=== PATIENT | male | born 1945 | race Caucasian/White ===

== ENCOUNTER 2016-09-04 20:41 | Emergency (ER) | payer BC, MEDICARE, OTHER ==
[2016-09-04] MEDS ORDERED: Ketorolac 30 MG/ML SDV ONE (21:08)
[2016-09-04] MEDS ORDERED: Aluminum Hydroxide/Magnesium Hydroxide Susp 30 ML Cup ONE (21:09)
[2016-09-04] MEDS ORDERED: Lidocaine 2% Viscous Solution 15 ML Cup ONE (21:09)
[2016-09-04] MEDS ORDERED: Sodium Chloride 0.9% 10 ML Syringe FLUSH PRN (21:10)
[2016-09-04] MEDS ORDERED: Alum Hydroxide/Mag Hydroxide 15 ML, Lidocaine 2% 15 ML PO ONE ×2 (21:11)
[2016-09-04] MEDS ORDERED: Ketorolac 30 MG/ML SDV IVPUSH ONE (21:11)
[2016-09-04] MEDS ORDERED: Potassium Chloride 20 MEQ Tab.ER PO ONE (22:03)
[2016-09-04] MEDS ORDERED: Sodium Chloride 0.9% 1,000 ML IV SCH (22:15)
[2016-09-04] MEDS ORDERED: Iopamidol 755 Mg/ML 100 ML Bottle IV ONE (23:26)
--- NOTE | 2016-09-04 23:37 | EDM.PDOC ---
ED HPI GENERAL MEDICAL PROBLEM - General Chief Complaint: Abdominal Pain Stated Complaint: SEVER ABDPAIN Time Seen by Provider: 09/04/16 21:31 Source of Information: Reports: Patient History Limitations: Reports: No Limitations - History of Present Illness INITIAL COMMENTS - FREE TEXT/NARRATIVE: c/o severe epigastric pain x 1h is in [place], he made himself salmon for dinner, shortly thereafter he had a severe burn and pain in his epigastrium, it felt likely heartburn just much worse than in the past, he took a GasX without benefit, central, radiated to back no n/v, no f/c/d quite uncomfortable on arrival here, pain relieved completely after Toradol 15 mg IV and GI cocktail does have inc'd LFTs that are 4-5x previous normal level 2y ago will obtain abd CT to look for possible hepatic, biliary and pancreatic disease K 3.2, pt may have GERD with gastric spasm d/t hypokalemia and dehydration (inc' d hgb) and known h/o GERD h/o kidney stones which is much different per pt PSH TURP, cervical disc surgery, no abd surgery no cigs, drinks one beer a day only, no street drugs Treatments RN TRANSFER: Reports: NSAIDS Middle Abdominal Pain Score (Numeric/FACES): 10 - Related Data Allergies Allergy/AdvReac Type Severity Reaction Status Date / Time No Known Allergies Allergy Verified 04/24/14 03:07 Home Meds: Home Meds Aspirin [Divina Chewable Aspirin] 81 mg PO DAILY 04/24/14 [History] Levothyroxine 112 mcg PO ACBRK 04/24/14 [History] Omeprazole [Prilosec] 20 mg PO DAILY 04/24/14 [History] Simvastatin [Zocor] 40 mg PO BEDTIME 04/24/14 [History] Potassium Chloride [K-Tab ER] 20 meq PO BID #4 tablet.er 09/05/16 [Rx] Sucralfate [Carafate] 1 gm PO ACBED #28 tab 09/05/16 [Rx] Past Medical History Cardiovascular History: Reports: High Cholesterol - Past Surgical History Male Surgical History: Reports: TURP-Transurethral Resection of Prostate Social & Family History - Tobacco Use Smoking Status *Q: Never Smoker Second Hand Smoke Exposure: No - Alcohol Use Days Per Week of Alcohol Use: 1 Number of Drinks Per Day: 1 Total Drinks Per Week: 1 Date of Last Drink: 09/04/16 Time of Last Drink: 18:00 - Recreational Drug Use Recreational Drug Use: No ED ROS GENERAL - Review of Systems Review Of Systems: See Below Constitutional: Reports: No Symptoms HEENT: Reports: No Symptoms Respiratory: Reports: No Symptoms Cardiovascular: Reports: No Symptoms Endocrine: Reports: No Symptoms GI/Abdominal: Reports: Abdominal Pain : Reports: No Symptoms Musculoskeletal: Reports: No Symptoms Skin: Reports: No Symptoms Neurological: Reports: No Symptoms Psychiatric: Reports: No Symptoms Hematologic/Lymphatic: Reports: No Symptoms Immunologic: Reports: No Symptoms ED EXAM, GI/ABD - Physical Exam Exam: See Below General Appearance: Alert, WD/WN, Moderate Distress, Other (unable to get comfortable) Head: Atraumatic, Normocephalic Neck: Normal Inspection, Supple, Non-Tender, Full Range of Motion Respiratory/Chest: No Respiratory Distress, Lungs Clear, Normal Breath Sounds, No Accessory Muscle Use, Chest Non-Tender Cardiovascular: Normal Peripheral Pulses, Regular Rate, Rhythm, No Edema, No Gallop, No JVD, No Murmur, No Rub GI/Abdominal: Normal Bowel Sounds, Soft, No Distention, Other (1+ tender from xiphoid to 1/[address] way to umbilicus in midline) Back Exam: Normal Inspection Extremities: Normal Inspection, Normal Range of Motion, Non-Tender, No Pedal Edema Neurological: Alert, Oriented, CN II-XII Intact, Normal Cognition, No Motor/ Sensory Deficits Psychiatric: Normal Affect Skin Exam: Warm, Dry, Intact, Normal Color, No Rash Lymphatic: No Adenopathy Course - Vital Signs Last Recorded V/S: Last Vital Signs Temp 36.4 C 09/04/16 20:52 Pulse 58 L 09/05/16 00:04 Resp 16 09/05/16 00:04 BP 152/83 H 09/05/16 00:04 Pulse Ox 99 09/05/16 00:04 - Orders/Labs/Meds Orders: Active Orders 24 hr Category Date Time Status EKG Documentation Completion [RC] ASDIRECTED Care 09/04/16 21:13 Active Abdomen w Cont [CT] Stat Exams 09/04/16 22:11 Taken LIPASE [REF] Stat Lab 09/04/16 21:51 Received Sodium Chloride 0.9% [Normal Saline] 1,000 ml Med 09/04/16 22:15 Active IV ASDIRECTED Sodium Chloride 0.9% [Saline Flush] Med 09/04/16 21:10 Active 10 ml FLUSH ASDIRECTED PRN Saline Lock Insert [OM.PC] Routine Oth 09/04/16 21:10 Ordered EKG 12 Lead [EK] Routine Ther 09/04/16 21:12 Ordered Medication Orders Sodium Chloride (Normal Saline) 1,000 mls @ 999 mls/hr IV ASDIRECTED DB Last Admin: 09/04/16 22:17 Dose: 999 mls/hr Sodium Chloride (Saline Flush) 10 ml FLUSH ASDIRECTED PRN PRN Reason: Keep Vein Open Last Admin: 09/04/16 22:16 Dose: 10 ml Labs: Laboratory Tests 09/04/16 09/04/16 09/04/16 Range/Units 21:17 21:17 21:17 WBC 7.8 (4.5-12.0) X10-3/uL RBC 5.25 (4.30-5.75) x10(6)uL Hgb 15.8 H (11.5-15.5) g/dL Hct 45.8 (30.0-51.3) % MCV 87.3 (80-96) fL MCH 30.0 (27.7-33.6) pg MCHC 34.4 (32.2-35.4) g/dL RDW 12.9 (11.5-15.5) % Plt Count 199 (125-369) X10(3)uL MPV 9.9 (7.4-10.4) fL Neut % (Auto) 50.1 (46-82) % Lymph % (Auto) 42.3 H (13-37) % [place] % (Auto) 5.8 (4-12) % Eos % (Auto) 1 (1.0-5.0) % Baso % (Auto) 0 (0-2) % Neut # (Auto) 3.9 (1.6-8.3) # Lymph # (Auto) 3.3 (0.6-5.0) # Dixie # (Auto) 0.5 (0.0-1.3) # Eos # (Auto) 0.1 (0.0-0.8) # Baso # (Auto) 0.0 (0.0-0.2) # Sodium 137 (135-145) mmol/L Potassium 3.2 L (3.5-5.3) mmol/L Chloride 104 (100-110) mmol/L Carbon Dioxide 23 (23-29) mmol/L BUN 23 (8-23) mg/dL Creatinine 1.2 (0.6-1.3) mg/dL Est Cr Clr Drug Dosing 61.01 mL/min Estimated GFR (MDRD) 60 (>60) BUN/Creatinine Ratio 19.2 (9-20) Glucose 104 (80-116) mg/dL Calcium 9.4 (8.6-10.2) mg/dL Total Bilirubin 1.2 (0.1-1.3) mg/dL AST 129 H D (5-27) IU/L ALT 82 H D (14-26) IU/L Alkaline Phosphatase 83 (56-112) IU/L Troponin I < 0.01 L (0.02-0.06) NG/ML C-Reactive Protein < 0.5 (0.0-1.0) mg/dL Total Protein 7.9 (6.0-8.0) g/dL Albumin 4.8 H (3.2-4.6) g/dL Globulin 3.1 g/dL Albumin/Globulin Ratio 1.6 Amylase (28-100) U/L Urine Color (YELLOW) Urine Appearance (CLEAR) Urine pH (5.0-6.5) Ur Specific [place] (1.010-1.025) Urine Protein (NEGATIVE) mg/dL Urine Glucose (UA) (NEGATIVE) mg/dL Urine Ketones (NEGATIVE) mg/dL Urine Occult Blood (NEGATIVE) Urine Nitrite (NEGATIVE) Urine Bilirubin (NEGATIVE) Urine Urobilinogen (NEGATIVE) mg/dL Ur Leukocyte Esterase (NEGATIVE) Urine RBC (0) Urine WBC (0) Ur Squamous Epith Cells (NS,R,O) Urine Bacteria (NS) Urine Mucus (NS) 09/04/16 09/04/16 Range/Units 21:45 21:51 WBC (4.5-12.0) X10-3/uL RBC (4.30-5.75) x10(6)uL Hgb (11.5-15.5) g/dL Hct (30.0-51.3) % MCV (80-96) fL MCH (27.7-33.6) pg MCHC (32.2-35.4) g/dL RDW (11.5-15.5) % Plt Count (125-369) X10(3)uL MPV (7.4-10.4) fL Neut % (Auto) (46-82) % Lymph % (Auto) (13-37) % [place] % (Auto) (4-12) % Eos % (Auto) (1.0-5.0) % Baso % (Auto) (0-2) % Neut # (Auto) (1.6-8.3) # Lymph # (Auto) (0.6-5.0) # Dixie # (Auto) (0.0-1.3) # Eos # (Auto) (0.0-0.8) # Baso # (Auto) (0.0-0.2) # Sodium (135-145) mmol/L Potassium (3.5-5.3) mmol/L Chloride (100-110) mmol/L Carbon Dioxide (23-29) mmol/L BUN (8-23) mg/dL Creatinine (0.6-1.3) mg/dL Est Cr Clr Drug Dosing mL/min Estimated GFR (MDRD) (>60) BUN/Creatinine Ratio (9-20) Glucose (80-116) mg/dL Calcium (8.6-10.2) mg/dL Total Bilirubin (0.1-1.3) mg/dL AST (5-27) IU/L ALT (14-26) IU/L Alkaline Phosphatase (56-112) IU/L Troponin I (0.02-0.06) NG/ML C-Reactive Protein (0.0-1.0) mg/dL Total Protein (6.0-8.0) g/dL Albumin (3.2-4.6) g/dL Globulin g/dL Albumin/Globulin Ratio Amylase 61 (28-100) U/L Urine Color Yellow (YELLOW) Urine Appearance Clear (CLEAR) Urine pH 5.0 (5.0-6.5) Ur Specific [place] 1.020 (1.010-1.025) Urine Protein Negative (NEGATIVE) mg/dL Urine Glucose (UA) Normal (NEGATIVE) mg/dL Urine Ketones Negative (NEGATIVE) mg/dL Urine Occult Blood Negative (NEGATIVE) Urine Nitrite Negative (NEGATIVE) Urine Bilirubin Negative (NEGATIVE) Urine Urobilinogen Normal (NEGATIVE) mg/dL Ur Leukocyte Esterase Negative (NEGATIVE) Urine RBC Not seen (0) Urine WBC 0-5 (0) Ur Squamous Epith Cells Moderate H (NS,R,O) Urine Bacteria Few H (NS) Urine Mucus Moderate H (NS) Meds: Medications Generic Name Dose Route Start Last Admin Trade Name Carlitos PRN Reason Stop Dose Admin Sodium Chloride 1,000 mls @ 999 mls/hr 09/04/16 22:15 09/04/16 22:17 Normal Saline IV 999 mls/hr ASDIRECTED DB Administration Sodium Chloride 10 ml 09/04/16 21:10 09/04/16 22:16 Saline Flush FLUSH 10 ml ASDIRECTED PRN Administration Keep Vein Open Discontinued Medications Generic Name Dose Route Start Last Admin Trade Name Carlitos PRN Reason Stop Dose Admin Al Hydroxide/Mg Hydroxide Confirm 09/04/16 21:09 09/04/16 21:16 Mag-Al Susp Administered 09/04/16 21:10 Not Given Dose 30 ml .ROUTE .STK-MED ONE Al Hydroxide/Mg Hydroxide 15 0 ml 09/04/16 21:11 09/04/16 21:17 ml/ Lidocaine HCl 15 ml PO 09/04/16 21:12 30 ml ONETIME ONE Administration Iopamidol 90 ml 09/04/16 23:26 09/04/16 23:40 Isovue-370 (76%) IV 09/04/16 23:27 90 ml . DIRECTED ONE Administration Ketorolac Tromethamine Confirm 09/04/16 21:08 09/04/16 21:17 Toradol Administered 09/04/16 21:09 Not Given Dose 30 mg .ROUTE .STK-MED ONE Ketorolac Tromethamine 15 mg 09/04/16 21:11 09/04/16 21:19 Toradol IVPUSH 09/04/16 21:12 15 mg ONETIME ONE Administration Lidocaine HCl Confirm 09/04/16 21:09 09/04/16 21:17 Xylocaine 2% Viscous Administered 09/04/16 21:10 Not Given Dose 15 ml .ROUTE .STK-MED ONE Potassium Chloride 40 meq 09/04/16 22:03 09/04/16 22:30 Klor-Con M20 PO 09/04/16 22:04 40 meq ONETIME ONE Administration - Re-Assessments/Exams Free Text/Narrative Re-Assessment/Exam: 09/05/16 01:[address] reviewed with pt, gallstones present, GERD with spasm more likely altho biliary colic cannot be excluded, pt aware that there is a 3.4 cm L renal mass that may be a CA, currently on omeprazole for several yrs Departure - Departure Time of Disposition: 01:35 Disposition: Home, Self-Care 01 Condition: good Clinical Impression: GERD with esophagitis, Spasm of stomach, Cholelithiasis, Elevated LFTs, Left kidney mass, Esophagitis, Hypokalemia - Discharge Information Prescriptions: Potassium Chloride [K-Tab ER] 20 meq PO BID #4 tablet.er Sucralfate [Carafate] 1 gm PO ACBED #28 tab Forms: ED Department Discharge Additional Instructions: To replace potassium, take potassium 20 meq 1 tab 2 times a day for 2 days. To decrease acid production, continue omeprazole. To neutralize acid, take liquid antacid 15 cc 2 hours after meals and bedtime for 1 week. To coat and protect the stomach, take carafate 1 gram 1 tab one before meals and bedtime for 1 week. Increase fluids. See Dr Barbosa tomorrow. If you have increased pain, take a dose of the liquid antacid. If necessary, return to the ED. You have a mass on the liver that is likely benign, although you need to discuss this further with Dr Barbosa. You may need a gallbladder ultrasound if you have additional symptoms. Call your Physician or Return to Emergency Department if: * Your condition worsens in any way. * You develop fever greater than 100.4. * You have vomitting that does not stop with medications. * You have pain that is not controlled with medications. - My Orders Last 24 Hours: My Active Orders 09/04/16 21:10 Sodium Chloride 0.9% [Saline Flush] 10 ml FLUSH ASDIRECTED PRN Saline Lock Insert [OM.PC] Routine 09/04/16 21:12 EKG 12 Lead [EK] Routine 09/04/16 21:13 EKG Documentation Completion [RC] ASDIRECTED 09/04/16 21:51 LIPASE [REF] Stat 09/04/16 22:11 Abdomen w Cont [CT] Stat 09/04/16 22:15 Sodium Chloride 0.9% [Normal Saline] 1,000 ml IV ASDIRECTED - Assessment/Plan Last 24 Hours: My Active Orders 09/04/16 21:10 Sodium Chloride 0.9% [Saline Flush] 10 ml FLUSH ASDIRECTED PRN Saline Lock Insert [OM.PC] Routine 09/04/16 21:12 EKG 12 Lead [EK] Routine 09/04/16 21:13 EKG Documentation Completion [RC] ASDIRECTED 09/04/16 21:51 LIPASE [REF] Stat 09/04/16 22:11 Abdomen w Cont [CT] Stat 09/04/16 22:15 Sodium Chloride 0.9% [Normal Saline] 1,000 ml IV ASDIRECTED
[2016-09-05 01:42] VITALS: BP 160/91
== END 2016-09-05 01:50 | disposition home or self-care (01) ==
LOC: FB.ED 20:41
DX: K21.0 Gastro-esophageal reflux disease with esophagitis (principal); K31.9 Disease of stomach and duodenum, unspecified; K80.20 Calculus of gallbladder without cholecystitis without obstruction; N28.89 Other specified disorders of kidney and ureter; R94.5 Abnormal results of liver function studies; E78.00 Pure hypercholesterolemia, unspecified; E87.6 Hypokalemia; Z79.899 Other long term (current) drug therapy; Z90.79 Acquired absence of other genital organ(s); Z79.82 Long term (current) use of aspirin
CPT/HCPCS: 36415; 74160; 80053; 81001; 82150; 83690; 84484; 85025; 86140; 93005; 96361; 96374; 99284; A9270; J1885; J7040; J7050; Q9967

== ENCOUNTER 2020-01-30 15:04 | Emergency (ER) | payer OTHER ==
[2020-01-30] MEDS ORDERED: Albuterol 8 GM Inhaler INH ONE (15:05)
--- NOTE | 2020-01-30 15:15 | EDM.PDOC ---
ED HPI GENERAL MEDICAL PROBLEM - General Chief Complaint: Respiratory Problem Stated Complaint: COVID SYMPTOMS Time Seen by Provider: 01/30/20 15:15 Source of Information: Reports: Patient History Limitations: Reports: No Limitations - History of Present Illness INITIAL COMMENTS - FREE TEXT/NARRATIVE: 74-year-old male with COVID-19 that was diagnosed at the first part of this last week. He was symptomatic approximately 8-9 days ago and the test came back positive the first part of this last week. Since then, the patient reports that he has been having fevers usually every morning with some body aches and he has had nasal congestion and cough that has been hacking. His symptoms seem to be worse in the morning and then get better through the day this afternoon, the took his O2 saturation and her O2 saturation (they both have COVID) and they noted that his reading was 91% at one time and 65% at another time. He is really having no difficulty breathing. He was not feeling unwell at the time and in fact he was actually feeling better than he had been feeling in days with decreased cough. They called the COVID nurse and were told to come directly to the emergency department for evaluation. They're here for evaluation. He has had no nausea or vomiting. No arm or leg weakness. He has been eating and drinking normally. He currently denies any pain. He rates his pain as a 0/10. There are no other associated signs or symptoms. There are no other modifying factors. Onset: Today Duration: Constant Quality: Reports: Other Improves with: Reports: None Worsens with: Reports: None (No pain) Context: Reports: Other (As above) Associated Symptoms: Reports: Cough, Fever/Chills, Malaise Treatments PROCESSING MANAGER: Reports: Other (see below) ([id number] remedies) - Related Data Allergies Allergy/AdvReac Type Severity Reaction Status Date / Time No Known Allergies Allergy Verified 04/24/14 03:07 Home Meds: Home Meds Aspirin [Divina Chewable Aspirin] 81 mg PO DAILY 04/24/14 [History] Levothyroxine 112 mcg PO ACBRK 04/24/14 [History] Omeprazole [Prilosec] 20 mg PO DAILY 04/24/14 [History] Simvastatin [Zocor] 40 mg PO BEDTIME 04/24/14 [History] Potassium Chloride [K-Tab ER] 20 meq PO BID #4 tablet.er 09/05/16 [Rx] Sucralfate [Carafate] 1 gm PO ACBED #28 tab 09/05/16 [Rx] Past Medical History Cardiovascular History: Reports: High Cholesterol Genitourinary History: Reports: BPH Musculoskeletal History: Reports: Other (See Below) (Polymyalgia rheumatica on prednisone.) - Past Surgical History Male Surgical History: Reports: TURP-Transurethral Resection of Prostate Neurological Surgical History: Reports: C-Spine (Posterior), Discectomy (Cervical with posterior approach) Social & Family History - Tobacco Use Smoking Status *Q: Never Smoker - Alcohol Use Alcohol Use History: Yes Alcohol Use Frequency: Daily (1 beer a day but has had no beer for the past week.) - Living Situation & Occupation Living situation: Reports: Occupation: Retired ED ROS GENERAL - Review of Systems Review Of Systems: See Below Constitutional: Reports: Fever, Malaise HEENT: Reports: No Symptoms Respiratory: Reports: Cough. Denies: Shortness of Breath Cardiovascular: Reports: No Symptoms GI/Abdominal: Reports: No Symptoms : Reports: No Symptoms Musculoskeletal: Reports: No Symptoms Skin: Reports: No Symptoms Neurological: Reports: No Symptoms Hematologic/Lymphatic: Reports: No Symptoms Immunologic: Reports: No Symptoms ED EXAM, GENERAL - Physical Exam Exam: See Below Exam Limited By: No Limitations General Appearance: Alert, WD/WN, No Apparent Distress, Other (No respiratory distress. Nontoxic.) Eye Exam: Bilateral Eye: EOMI, Normal Inspection, PERRL Ears: Normal External Exam, Hearing Grossly Normal Ear Exam: Bilateral Ear: Auricle Normal Nose: Nasal Drainage, Clear Rhinorrhea Throat/Mouth: Normal Inspection, Normal Oropharynx, Normal Voice, No Airway Compromise Head: Atraumatic, Normocephalic Neck: Normal Inspection, Supple, Non-Tender, Full Range of Motion Respiratory/Chest: No Respiratory Distress, Lungs Clear, Normal Breath Sounds, No Accessory Muscle Use, Chest Non-Tender Cardiovascular: Normal Peripheral Pulses, Regular Rate, Rhythm, No Murmur Peripheral Pulses: 2+: Radial (L), Radial (R) GI/Abdominal: Normal Bowel Sounds, Soft, Non-Tender Back Exam: Normal Inspection Extremities: Normal Inspection, Normal Range of Motion, Non-Tender, No Pedal Edema, Normal Capillary Refill Neurological: Alert, Oriented, CN II-XII Intact, Normal Cognition, No Motor/Sensory Deficits Psychiatric: Normal Affect Skin Exam: Warm, Dry, Intact, Normal Color, No Rash Course - Vital Signs Last Recorded V/S: Last Vital Signs Temp 36.6 C 01/30/20 15:04 Pulse 82 01/30/20 15:50 Resp 17 01/30/20 15:04 BP 139/90 01/30/20 15:04 Pulse Ox 97 01/30/20 15:50 - Re-Assessments/Exams Free Text/Narrative Re-Assessment/Exam: 01/30/20 15:25: Patient was reported to have O2 saturation of 68% on room air at home from home O2 sat monitor in the patient is positive for COVID 19. He was completely asymptomatic at the time and felt well but they called the COVID nurse and was told to come in to the emergency department for evaluation. His O2 saturations here are 97-98% on room air. He is breathing normally. There is no respiratory distress. There were a few wheezes that cleared with cough and deep breathing. There is no increased work of breathing and he has normal vital signs and normal skin coloration. He does not appear to have any reason for testing or further treatment at this time that could not be performed at home. I will plan on giving the patient a prescription or an albuterol inhaler and he should use Mucinex as well ([id number]) for his cough. He is to continue monitoring his O2 sats at home as he was told to do. I did reiterate precautions and reasons for return to the emergency department with the patient while he was in the emergency department and I detailed them in his discharge instructions. Departure - Departure Time of Disposition: 15:35 Disposition: Home, Self-Care 01 Condition: Good Clinical Impression: COVID-19 URI (upper respiratory infection) Qualifiers: URI type: unspecified viral URI Qualified Code(s): J06.9 - Acute upper respiratory infection, unspecified RAD (reactive airway disease) with wheezing Qualifiers: Asthma severity: mild Asthma persistence: intermittent Asthma complication type: uncomplicated Qualified Code(s): J45.20 - Mild intermittent asthma, uncomplicated - Discharge Information Instructions: COVID-19 Frequently Asked Questions, Cough, Adult, [id number], Upper Respiratory Infection, Adult, [id number], Prevent the Spread of COVID-19 if You Are Sick - [facility] Referrals: Erick Wasserman MD [Primary Care Provider] - Forms: ED Department Discharge Additional Instructions: Your exam was reassuringly normal. Your O2 saturation was 98% on room air. You should continue to do the home therapy as you have been doing. You may also try Mucinex or Robitussin to help with your cough. You also need to increase your fluid intake. Given you an albuterol inhaler that you should use with the spacer that we provided you, 2 puffs every 4 hours as needed for wheezing or cough. Back to the emergency department for his breathing, unrelenting vomiting, severe weakness, O2 saturation of 90% or lower on the measurement at home or any other concerning sign or symptom.
[2020-01-30 15:22] VITALS: BP 139/90
[2020-01-30 20:57] VITALS: PULSE 82
== END 2020-01-30 15:51 | disposition home or self-care (01) ==
LOC: FB.ED 15:04
DX: U07.1 COVID-19 (principal); J45.20 Mild intermittent asthma, uncomplicated; J06.9 Acute upper respiratory infection, unspecified; E78.00 Pure hypercholesterolemia, unspecified; Z79.82 Long term (current) use of aspirin; Z79.899 Other long term (current) drug therapy
CPT/HCPCS: 99283; A9270

== ENCOUNTER 2021-11-03 09:01 | Emergency (ER) | payer OTHER ==
[2021-11-03 09:52] LABS: ESTIMATED GFR 78 mL/min (>60)
[2021-11-03] MEDS ORDERED: Aspirin 81 MG Tab.Chew PO STA (12:18)
[2021-11-03] MEDS ORDERED: Heparin Sodium 5,000 Units/ML Vial IVPUSH ONE (12:21)
[2021-11-03] MEDS ORDERED: Heparin Sodium/0.45% NaCl 500 ML IV SCH (12:30)
[2021-11-03] MEDS ORDERED: Clopidogrel 75 MG Tab PO STA (12:53)
[2021-11-03 14:23] VITALS: BP 171/85; PULSE 64
== END 2021-11-03 14:45 ==
LOC: FB.ED 09:01
DX: I24.9 Acute ischemic heart disease, unspecified (principal); E03.9 Hypothyroidism, unspecified; K21.9 Gastro-esophageal reflux disease without esophagitis; E78.5 Hyperlipidemia, unspecified; E78.00 Pure hypercholesterolemia, unspecified; Z79.899 Other long term (current) drug therapy
CPT/HCPCS: 36415; 71045; 80053; 83880; 84484; 85025; 85610; 85730; 93005; 96365; 99285; A9270; J1644

== ENCOUNTER 2021-12-09 01:04 | Emergency (ER) | payer OTHER ==
[2021-12-09 01:38] LABS: ESTIMATED GFR 57 mL/min (>60)
[2021-12-09 02:40] VITALS: BP 169/92; PULSE 60
== END 2021-12-09 02:48 | disposition home or self-care (01) ==
LOC: FB.ED 01:04
DX: M50.30 Other cervical disc degeneration, unspecified cervical region (principal); E78.00 Pure hypercholesterolemia, unspecified; Z79.899 Other long term (current) drug therapy; Z79.82 Long term (current) use of aspirin; Z79.02 Long term (current) use of antithrombotics/antiplatelets
CPT/HCPCS: 36415; 80053; 84484; 85025; 93005; 99283

== ENCOUNTER 2022-10-01 02:12 | Emergency (ER) | payer OTHER ==
[2022-10-01] MEDS ORDERED: Sodium Chloride 0.9% 10 ML Syringe FLUSH PRN (02:21)
[2022-10-01 02:48] LABS: BASOPHILS PERCENT AUTO 0.7 % (0.3-3.8); EOSINOPHILS ABSOLUTE AUTO 0.2 x10-3/uL (0.0-0.6); EOSINOPHILS PERCENT AUTO 2.3 % (0.1-6.8); HEMATOCRIT 42.7 % (38.3-50.1); HEMOGLOBIN 14.7 g/dL (12.9-17.7); LYMPHOCYTES ABSOLUTE AUTO 2.9 x10-3/uL (0.5-4.5); LYMPHOCYTES PERCENT AUTO 39.5 % (15.8-45.3); MEAN CORPUSCULAR HEMOGLOBIN 30.4 pg (27.0-33.3); MEAN CORPUSCULAR HGB CONC 34.5 g/dL (28.7-35.3); MEAN CORPUSCULAR VOLUME 88.1 fL (80.8-98.7); MEAN PLATELET VOLUME 9.4 fL (6.7-11.0); MONOCYTES ABSOLUTE AUTO 0.7 x10-3/uL (0.0-1.2); MONOCYTES PERCENT AUTO 9.6 % (5.5-15.2); NEUTROPHILS ABSOLUTE AUTO 3.5 x10-3/uL (1.7-6.9); NEUTROPHILS PERCENT AUTO 47.9 % (40.3-71.8); PLATELET COUNT,PLT 287 x10(3)uL (117-477); RED BLOOD CELL COUNT 4.84 x10(6)uL (3.90-5.90); RED CELL DISTRIBUTION WIDTH 14.1 % (12.4-15.0); WHITE BLOOD CELL COUNT,WBC 7.3 x10-3/uL (3.2-10.1)
[2022-10-01 02:54] LABS: BLOOD UREA NITROGEN,BUN 20 mg/dL (7-18); CALCIUM 9.1 mg/dL (8.6-10.2); CARBON DIOXIDE,CO2 27 mmol/L (21-32); CHLORIDE,CL 105 mmol/L (100-110); ESTIMATED GFR 78 mL/min (>60); GLUCOSE RANDOM 103 mg/dL (80-116); POTASSIUM,K 3.6 mmol/L (3.5-5.3); SODIUM,NA 141 mmol/L (135-145)
[2022-10-01] MEDS: HYDROmorphone 2 MG/ML SDV IVPUSH ONE (02:57)
[2022-10-01] MEDS: Ondansetron 4 MG/2 ML SDV IVPUSH ONE (02:59)
[2022-10-01] MEDS: Sodium Chloride 0.9% 500 ML IV ONE (03:00)
[2022-10-01 03:05] LABS: A/G RATIO 1.3; ALANINE AMINOTRANSFERASE,ALT 100 U/L (12-36); ALBUMIN 4.3 g/dL (3.2-4.6); ALKALINE PHOSPHATASE 108 IU/L (56-112); ASPARTATE AMNIOTRANSFERASE,AST 133 IU/L (5-25); C-REACTIVE PROTEIN < 0.2 mg/dL (0.5-0.9); LIPASE 49 U/L (16-77); MAGNESIUM 1.9 mg/dL (1.8-2.5); PROTEIN TOTAL,TP 7.5 g/dL (6.0-8.0); TROPONIN I 48.7 pg/mL (4.0-60.3)
[2022-10-01 04:50] VITALS: BP 169/103; PULSE 64
[2022-10-01] MEDS: Iopamidol 755 Mg/ML 100 ML Bottle IV ONE (05:12)
[2022-10-02 13:12] LABS: HBSAG SCREEN Negative (Negative); HCV AB Non Reactive (Non Reactive); HEP A AB, IGM Negative (Negative); HEP B CORE AB, IGM Negative (Negative)
== END 2022-10-01 06:37 | disposition home or self-care (01) ==
LOC: FB.ED 02:12
DX: K80.70 Calculus of gallbladder and bile duct without cholecystitis without obstruction (principal); I25.10 Atherosclerotic heart disease of native coronary artery without angina pectoris; I10 Essential (primary) hypertension; I25.2 Old myocardial infarction; N40.0 Benign prostatic hyperplasia without lower urinary tract symptoms; E78.00 Pure hypercholesterolemia, unspecified; R79.89 Other specified abnormal findings of blood chemistry; Z79.899 Other long term (current) drug therapy; Z79.02 Long term (current) use of antithrombotics/antiplatelets
CPT/HCPCS: 36415; 74177; 80053; 80074; 83690; 83735; 84484; 85025; 86140; 93005; 96374; 96375; 99284; J1170; J2405; J7040; Q9967

== ENCOUNTER 2022-11-05 06:35 | Day surgery (SDC) | payer OTHER ==
[~2022-11-05 06:35] MED LIST: Lactated Ringers 1,000 ML IV SCH; Sodium Chloride 0.9% 10 ML Syringe FLUSH PRN
[2022-11-05] MEDS ORDERED: Succinylcholine 200 MG/10 ML MDV IV ONE (06:36)
[2022-11-05] MEDS ORDERED: Midazolam 1 MG/ML 2 ML SDV IV ONE (06:36)
[2022-11-05] MEDS ORDERED: Ondansetron 4 MG/2 ML SDV IVPUSH ONE (06:36)
[2022-11-05] MEDS ORDERED: Rocuronium 100 MG/10 ML MDV IV ONE (06:36)
[2022-11-05] MEDS ORDERED: Glycopyrrolate 0.2 MG/ML 5 ML MDV IV ONE (06:36)
[2022-11-05] MEDS ORDERED: diphenhydrAMINE 50 MG/ML SDV IVPUSH ONE (06:36)
[2022-11-05] MEDS ORDERED: Neostigmine Methylsulfate 10 MG/10 ML MDV IVPUSH ONE (06:36)
[2022-11-05] MEDS ORDERED: Propofol 200 MG/20 ML SDV IV ONE (06:36)
[2022-11-05] MEDS ORDERED: Lactated Ringers 1,000 ML IV ONE (06:36)
[2022-11-05] MEDS ORDERED: Dexamethasone 4 MG/ML 5 ML MDV IVPUSH ONE (06:36)
[2022-11-05] MEDS ORDERED: HYDROmorphone 2 MG/ML SDV IV ONE (06:36)
[2022-11-05] MEDS ORDERED: fentaNYL 100 MCG/2 ML SDV IV ONE (06:36)
[2022-11-05] MEDS ORDERED: Bupivacaine 0.25% 30 ML SDV INJECT ONE (08:35)
[2022-11-05 13:58] VITALS: BP 135/68; PULSE 47
== END 2022-11-05 15:00 | disposition home or self-care (01) ==
LOC: FB.SDS 06:35
PROVIDERS: ATTEND Surgery
DX: K80.10 Calculus of gallbladder with chronic cholecystitis without obstruction (principal); I25.10 Atherosclerotic heart disease of native coronary artery without angina pectoris; E78.00 Pure hypercholesterolemia, unspecified; M06.9 Rheumatoid arthritis, unspecified; Z79.899 Other long term (current) drug therapy; Z88.8 Allergy status to other drugs, medicaments and biological substances
CPT/HCPCS: 00790; 47562; 88304; J0330; J1100; J1170; J1200; J2250; J2405; J2704; J2710; J3010; J3490; J7120

== ENCOUNTER 2022-11-21 09:09 | Emergency (ER) | payer OTHER ==
[2022-11-21] MEDS ORDERED: Sodium Chloride 0.9% 1,000 ML IV ONE (09:46)
[2022-11-21 10:15] LABS: A/G RATIO 1.2; ALANINE AMINOTRANSFERASE,ALT 28 U/L (12-36); ALBUMIN 3.7 g/dL (3.2-4.6); ALKALINE PHOSPHATASE 83 IU/L (56-112); ASPARTATE AMNIOTRANSFERASE,AST 21 IU/L (5-25); BILIRUBIN TOTAL 1.2 mg/dL (0.1-1.3); BLOOD UREA NITROGEN,BUN 9 mg/dL (7-18); CALCIUM 8.5 mg/dL (8.6-10.2); CARBON DIOXIDE,CO2 28 mmol/L (21-32); ESTIMATED GFR 78 mL/min (>60); GLUCOSE RANDOM 107 mg/dL (80-116); POTASSIUM,K 4.1 mmol/L (3.5-5.3); PROTEIN TOTAL,TP 6.8 g/dL (6.0-8.0)
[2022-11-21 10:16] LABS: CHLORIDE,CL 86 mmol/L (100-110); SODIUM,NA 118 mmol/L (135-145)
[2022-11-21 10:24] LABS: C-REACTIVE PROTEIN 0.08 mg/dL (<0.33); TROPONIN I 34.9 pg/mL (4.0-60.3); TSH ULTRASENSITIVE 1.73 IU/mL (0.36-3.74)
[2022-11-21 11:37] LABS: BILIRUBIN,URINE NEGATIVE (NEGATIVE); GLUCOSE,URINE NORMAL (NORMAL); KETONES,URINE NEGATIVE (NEGATIVE); LEUKOCYTE ESTERASE,URINE NEGATIVE (NEGATIVE); NITRITE,URINE NEGATIVE (NEGATIVE); OCCULT BLOOD,URINE NEGATIVE (NEGATIVE); PROTEIN,URINE NEGATIVE (NEGATIVE); UROBILINOGEN,URINE NORMAL (NEGATIVE)
[2022-11-21 11:39] LABS: APPEARANCE,URINE CLEAR (CLEAR); COLOR,URINE YELLOW (YELLOW)
[2022-11-21 11:40] LABS: BACTERIA,URINE OCCASIONAL (NS); RBC,URINE NOT SEEN (0-5); SQUAMOUS EPITHELIAL CELLS,UR OCCASIONAL (NS,R,O); WBC,URINE 0-5 (0-5)
[2022-11-21 12:40] VITALS: BP 159/89; PULSE 55
== END 2022-11-21 12:30 | disposition home or self-care (01) ==
LOC: FB.ED 09:09
DX: E87.1 Hypo-osmolality and hyponatremia (principal); E83.42 Hypomagnesemia; E87.8 Other disorders of electrolyte and fluid balance, not elsewhere classified; R63.0 Anorexia; R63.4 Abnormal weight loss; I10 Essential (primary) hypertension; E78.00 Pure hypercholesterolemia, unspecified; I25.2 Old myocardial infarction; Z88.1 Allergy status to other antibiotic agents; Z88.8 Allergy status to other drugs, medicaments and biological substances; Z95.5 Presence of coronary angioplasty implant and graft; Z79.01 Long term (current) use of anticoagulants; Z79.899 Other long term (current) drug therapy
CPT/HCPCS: 36415; 80053; 81001; 83735; 83880; 84443; 84484; 86140; 93005; 93010; 96360; 99283-25; 99284; J7030

== ENCOUNTER 2024-01-17 14:09 | Emergency (ER) | payer OTHER ==
[2024-01-17] MEDS: HYDROmorphone 2 MG/ML SDV IVPUSH ONE ×3 (14:36→17:11)
[2024-01-17] MEDS: Ondansetron 4 MG/2 ML SDV IVPUSH ONE (14:37)
[2024-01-17] MEDS: Sodium Chloride 0.9% 1,000 ML IV ONE ×2 (14:41→16:45)
[2024-01-17 14:47] LABS: BASOPHILS PERCENT AUTO 0.3 % (0.3-3.8); EOSINOPHILS PERCENT AUTO 0.3 % (0.1-6.8); HEMATOCRIT 46.8 % (38.3-50.1); HEMOGLOBIN 15.8 g/dL (12.9-17.7); LYMPHOCYTES ABSOLUTE AUTO 2.4 x10-3/uL (0.5-4.5); LYMPHOCYTES PERCENT AUTO 16.9 % (15.8-45.3); MEAN CORPUSCULAR HEMOGLOBIN 29.5 pg (27.0-33.3); MEAN CORPUSCULAR HGB CONC 33.8 g/dL (28.7-35.3); MEAN CORPUSCULAR VOLUME 87.2 fL (80.8-98.7); MEAN PLATELET VOLUME 9.4 fL (6.7-11.0); MONOCYTES ABSOLUTE AUTO 0.8 x10-3/uL (0.0-1.2); MONOCYTES PERCENT AUTO 5.5 % (5.5-15.2); NEUTROPHILS ABSOLUTE AUTO 10.8 x10-3/uL (1.7-6.9); PLATELET COUNT,PLT 272 x10(3)uL (117-477); RED BLOOD CELL COUNT 5.36 x10(6)uL (3.90-5.90); RED CELL DISTRIBUTION WIDTH 13.9 % (12.4-15.0)
[2024-01-17 14:54] LABS: BLOOD UREA NITROGEN,BUN 24 mg/dL (7-18); CALCIUM 9.2 mg/dL (8.6-10.2); CARBON DIOXIDE,CO2 25 mmol/L (21-32); CHLORIDE,CL 103 mmol/L (100-110); CREATININE 1.5 mg/dL (0.70-1.30); EST CRCL DRUG DOSING (CG) 41.91 mL/min; ESTIMATED GFR 47 mL/min (>60); GLUCOSE RANDOM 124 mg/dL (80-116); POTASSIUM,K 4.1 mmol/L (3.5-5.3); SODIUM,NA 140 mmol/L (135-145)
[2024-01-17 14:59] LABS: ALANINE AMINOTRANSFERASE,ALT 18 U/L (12-36); ALBUMIN 4.4 g/dL (3.2-4.6); ALKALINE PHOSPHATASE 109 IU/L (56-112); ASPARTATE AMNIOTRANSFERASE,AST 23 IU/L (5-25); BILIRUBIN TOTAL 1.3 mg/dL (0.1-1.3); PROTEIN TOTAL,TP 8.7 g/dL (6.0-8.0)
[2024-01-17] MEDS: Ketorolac 30 MG/ML SDV IVPUSH ONE (15:37)
[2024-01-17] MEDS: Hydrocortisone Sodium Succinate 100 MG/2 ML SDV IVPUSH ONE (17:05)
[2024-01-17] MEDS: LORazepam 2 MG/ML SDV IVPUSH ONE (17:21)
[2024-01-17] MEDS: cefTRIAXone 2 GM Vial IVPUSH ONE (17:45)
[2024-01-17 18:02] LABS: BILIRUBIN,URINE NEGATIVE (NEGATIVE); GLUCOSE,URINE NORMAL (NORMAL); KETONES,URINE NEGATIVE (NEGATIVE); LEUKOCYTE ESTERASE,URINE LARGE (NEGATIVE); NITRITE,URINE NEGATIVE (NEGATIVE); OCCULT BLOOD,URINE TRACE (NEGATIVE); PROTEIN,URINE NEGATIVE (NEGATIVE); UROBILINOGEN,URINE NORMAL (NEGATIVE)
[2024-01-17 18:09] LABS: APPEARANCE,URINE CLOUDY (CLEAR); COLOR,URINE YELLOW (YELLOW); SQUAMOUS EPITHELIAL CELLS,UR RARE (NS,R,O); WBC,URINE >100 (0-5)
[2024-01-17 18:10] LABS: BACTERIA,URINE MANY (NS)
[2024-01-17 18:46] LABS: LACTIC ACID 1.2 mmol/L (0.4-2.0)
[2024-01-17] MEDS: Acetaminophen 325 MG Tab PO ONE (19:36)
[2024-01-17 19:47] VITALS: BP 137/76; PULSE 102
== END 2024-01-17 20:05 ==
LOC: FB.ED 14:09
DX: N13.2 Hydronephrosis with renal and ureteral calculous obstruction (principal); E03.9 Hypothyroidism, unspecified; K21.9 Gastro-esophageal reflux disease without esophagitis; I25.10 Atherosclerotic heart disease of native coronary artery without angina pectoris; I25.2 Old myocardial infarction; E78.5 Hyperlipidemia, unspecified; Z95.1 Presence of aortocoronary bypass graft; Z79.82 Long term (current) use of aspirin; Z79.899 Other long term (current) drug therapy; Z88.1 Allergy status to other antibiotic agents; Z88.8 Allergy status to other drugs, medicaments and biological substances
CPT/HCPCS: 36415; 74176; 80053; 81001; 83605; 85025; 87086; 87088; 87186; 96361; 96374; 96375; 96376; 99285; A9270; C1758; J0696; J1170; J1720; J1885; J2060; J2405; J7030

== ENCOUNTER 2025-01-11 03:32 | Inpatient (IN) | payer OTHER ==
[2025-01-11] MEDS: Ketorolac 30 MG/ML SDV IVPUSH ONE (03:53)
[2025-01-11] MEDS: Meropenem 1 GM SDV IVPUSH ONE (03:54)
[2025-01-11] MEDS: Ondansetron 4 MG/2 ML SDV IVPUSH ONE (03:54)
[2025-01-11 04:00] LABS: MEAN PLATELET VOLUME 10.9 fL (6.7-11.0); PLATELET COUNT,PLT 113 x10(3)uL (117-477); RED BLOOD CELL COUNT 4.94 x10(6)uL (3.90-5.90); RED CELL DISTRIBUTION WIDTH 15.3 % (12.4-15.0); WHITE BLOOD CELL COUNT,WBC 17.9 x10-3/uL (3.2-10.1)
[2025-01-11 04:02] LABS: BLOOD UREA NITROGEN,BUN 28 mg/dL (7-18); CARBON DIOXIDE,CO2 24 mmol/L (21-32); CHLORIDE,CL 103 mmol/L (100-110); CREATININE 1.7 mg/dL (0.70-1.30); EST CRCL DRUG DOSING (CG) 36.38 mL/min; ESTIMATED GFR 41 mL/min (>60); GLUCOSE RANDOM 127 mg/dL (80-116); POTASSIUM,K 3.8 mmol/L (3.5-5.3); SODIUM,NA 137 mmol/L (135-145)
[2025-01-11 04:07] LABS: A/G RATIO 1.0; ALANINE AMINOTRANSFERASE,ALT 35 U/L (12-36); ASPARTATE AMNIOTRANSFERASE,AST 35 IU/L (5-25); BILIRUBIN TOTAL 1.0 mg/dL (0.1-1.3); PROTEIN TOTAL,TP 7.8 g/dL (6.0-8.0)
[2025-01-11 04:11] LABS: LACTIC ACID 1.0 mmol/L (0.4-2.0)
[2025-01-11] MEDS: VANCOmycin 1 GM/200 ML 1 GM in Premix Bag 1 BAG IV ONE (04:18)
[2025-01-11 04:22] LABS: BAND PERCENT MAN 2 % (0-6); LYMPHOCYTES PERCENT MAN 6 % (13-37); MONOCYTES PERCENT MAN 2 % (4-12); SEG NEUTROPHILS PERCENT MAN 90 % (46-82)
[2025-01-11 04:38] LABS: INFLUENZA A NAA NEGATIVE (NEGATIVE); INFLUENZA B NAA NEGATIVE (NEGATIVE); RESPIRATORY SYNCYTIAL VIR NAA NEGATIVE (NEGATIVE)
[2025-01-11 04:39] LABS: CORONAVIRUS COVID-19 NAA NEGATIVE (NEGATIVE)
[2025-01-11 08:46] LABS: GLUCOSE,URINE NORMAL (NORMAL); OCCULT BLOOD,URINE LARGE (NEGATIVE)
[2025-01-11 08:47] LABS: APPEARANCE,URINE CLOUDY (CLEAR)
[2025-01-11] MEDS ORDERED: CYCLOSPORINE EYEBOTH SCH (10:30)
[2025-01-11] MEDS ORDERED: Carboxymethylcellulose Sodium 0.5% Ophth Soln 15 ML Bottle EYEBOTH PRN (11:15)
[2025-01-11] MEDS: Ondansetron 4 MG/2 ML SDV IV PRN (11:42)
[2025-01-11] MEDS: Hydrocortisone Sodium Succinate 100 MG/2 ML SDV IVPUSH ONE (12:50)
[2025-01-11] MEDS: Meropenem 500 MG SDV IVPUSH SCH (15:30)
[2025-01-11] MEDS ORDERED: Meropenem 1 GM SDV IVPUSH SCH (21:00)
[2025-01-11] MEDS: Hydrocortisone Sodium Succinate 100 MG/2 ML SDV IVPUSH SCH (21:56)
[2025-01-12 06:38] LABS: MEAN PLATELET VOLUME 10.1 fL (6.7-11.0); PLATELET COUNT,PLT 105 x10(3)uL (117-477); RED BLOOD CELL COUNT 4.12 x10(6)uL (3.90-5.90); RED CELL DISTRIBUTION WIDTH 15.7 % (12.4-15.0); WHITE BLOOD CELL COUNT,WBC 9.5 x10-3/uL (3.2-10.1)
[2025-01-12 06:46] LABS: A/G RATIO 0.9; ALANINE AMINOTRANSFERASE,ALT 48 U/L (12-36); ASPARTATE AMNIOTRANSFERASE,AST 46 IU/L (5-25); BILIRUBIN TOTAL 0.8 mg/dL (0.1-1.3); BLOOD UREA NITROGEN,BUN 26 mg/dL (7-18); CARBON DIOXIDE,CO2 21 mmol/L (21-32); CHLORIDE,CL 110 mmol/L (100-110); CREATININE 1.4 mg/dL (0.70-1.30); EST CRCL DRUG DOSING (CG) 44.18 mL/min; ESTIMATED GFR 51 mL/min (>60); GLUCOSE RANDOM 108 mg/dL (80-116); POTASSIUM,K 3.9 mmol/L (3.5-5.3); PROTEIN TOTAL,TP 5.7 g/dL (6.0-8.0); SODIUM,NA 139 mmol/L (135-145)
[2025-01-12 06:53] LABS: BAND PERCENT MAN 3 % (0-6); LYMPHOCYTES PERCENT MAN 3 % (13-37); MONOCYTES PERCENT MAN 1 % (4-12); SEG NEUTROPHILS PERCENT MAN 93 % (46-82)
[2025-01-12] MEDS: Saccharomyces Boulardii (Probiotic) 250 MG Cap PO SCH (09:09)
[2025-01-12] MEDS: Magnesium Sulfate 2 GM/50 mL 2 GM in Premix Bag 1 BAG IV ONE (09:28)
[2025-01-12] MEDS: Hydrocortisone Sodium Succinate 100 MG/2 ML SDV IVPUSH SCH (16:18)
[2025-01-12] MEDS: Sodium Chloride 0.9% 10 ML Syringe FLUSH PRN (23:04)
[2025-01-13 06:20] LABS: BASOPHILS ABSOLUTE AUTO 0.0 x10-3/uL (0.0-0.3); BASOPHILS PERCENT AUTO 0.3 % (0.3-3.8); EOSINOPHILS ABSOLUTE AUTO 0.0 x10-3/uL (0.0-0.6); EOSINOPHILS PERCENT AUTO 0.8 % (0.1-6.8); LYMPHOCYTES ABSOLUTE AUTO 1.4 x10-3/uL (0.5-4.5); LYMPHOCYTES PERCENT AUTO 22.8 % (15.8-45.3); MEAN PLATELET VOLUME 10.0 fL (6.7-11.0); MONOCYTES ABSOLUTE AUTO 0.5 x10-3/uL (0.0-1.2); MONOCYTES PERCENT AUTO 7.2 % (5.5-15.2); NEUTROPHILS ABSOLUTE AUTO 4.3 x10-3/uL (1.7-6.9); NEUTROPHILS PERCENT AUTO 68.9 % (40.3-71.8); PLATELET COUNT,PLT 101 x10(3)uL (117-477); RED BLOOD CELL COUNT 3.81 x10(6)uL (3.90-5.90); RED CELL DISTRIBUTION WIDTH 15.8 % (12.4-15.0); WHITE BLOOD CELL COUNT,WBC 6.3 x10-3/uL (3.2-10.1)
[2025-01-13 06:44] LABS: A/G RATIO 0.9; ALANINE AMINOTRANSFERASE,ALT 46 U/L (12-36); ASPARTATE AMNIOTRANSFERASE,AST 47 IU/L (5-25); BILIRUBIN TOTAL 0.6 mg/dL (0.1-1.3); BLOOD UREA NITROGEN,BUN 20 mg/dL (7-18); CARBON DIOXIDE,CO2 22 mmol/L (21-32); CHLORIDE,CL 109 mmol/L (100-110); CREATININE 1.2 mg/dL (0.70-1.30); EST CRCL DRUG DOSING (CG) 51.54 mL/min; ESTIMATED GFR 62 mL/min (>60); GLUCOSE RANDOM 103 mg/dL (80-116); POTASSIUM,K 3.7 mmol/L (3.5-5.3); PROTEIN TOTAL,TP 6.0 g/dL (6.0-8.0); SODIUM,NA 138 mmol/L (135-145)
[2025-01-13 13:02] VITALS: BP 150/88; PULSE 81
[2025-01-13] MEDS: RESTASIS 0.05% EYEBOTH SCH (17:26)
== END 2025-01-13 16:30 | disposition home or self-care (01) | DRG 698 ==
LOC: FB.ED 03:32 → FB.MS 10:21
PROVIDERS: ADMIT Family Medicine; ATTEND Family Medicine
DX: T83.511A Infection and inflammatory reaction due to indwelling urethral catheter, initial encounter (principal); A41.9 Sepsis, unspecified organism; R65.20 Severe sepsis without septic shock; N10 Acute pyelonephritis; E27.49 Other adrenocortical insufficiency; N17.9 Acute kidney failure, unspecified; H54.7 Unspecified visual loss; I25.10 Atherosclerotic heart disease of native coronary artery without angina pectoris; K21.9 Gastro-esophageal reflux disease without esophagitis; E03.9 Hypothyroidism, unspecified; E78.5 Hyperlipidemia, unspecified; R33.8 Other retention of urine; N40.1 Benign prostatic hyperplasia with lower urinary tract symptoms; M35.3 Polymyalgia rheumatica; D69.6 Thrombocytopenia, unspecified; E83.42 Hypomagnesemia; Z88.1 Allergy status to other antibiotic agents; Z79.82 Long term (current) use of aspirin; Z79.899 Other long term (current) drug therapy; Z79.52 Long term (current) use of systemic steroids; I25.2 Old myocardial infarction; Z95.5 Presence of coronary angioplasty implant and graft; Z98.890 Other specified postprocedural states; Y84.6 Urinary catheterization as the cause of abnormal reaction of the patient, or of later complication, without mention of misadventure at the time of the procedure
CPT/HCPCS: 36415; 71045; 80053; 81001; 83605; 83735; 85025; 86140; 87040; 87086; 87637; 94150; 99223; 99232; 99238; A9270-GY; J1650; J1720; J1885; J2185; J2405; J3375; J3475; J7030; J7512